=== PATIENT | female | born 2000 ===

== ENCOUNTER 2022-04-09 20:25 | Emergency (ER) | payer OTHER ==
[2022-04-09] MEDS ORDERED: Ketorolac 30 MG/ML SDV IVPUSH ONE (21:00)
[2022-04-09] MEDS ORDERED: Sodium Chloride 0.9% 10 ML Syringe FLUSH PRN (21:00)
[2022-04-09] MEDS ORDERED: diphenhydrAMINE 50 MG/ML SDV IVPUSH ONE (21:00)
[2022-04-09] MEDS ORDERED: Prochlorperazine 10 MG/2 ML SDV IVPUSH ONE (21:00)
[2022-04-09] MEDS ORDERED: Sodium Chloride 0.9% 1,000 ML IV ONE (21:00)
== END 2022-04-09 22:00 | disposition home or self-care (01) ==
LOC: FB.ED 20:25
DX: G43.909 Migraine, unspecified, not intractable, without status migrainosus (principal); E86.0 Dehydration; Z88.0 Allergy status to penicillin
CPT/HCPCS: 96361; 96374; 96375; 99282; 99283; J0780; J1200; J1885; J7030